=== PATIENT | male | born 2000 | race Two or more races ===

== ENCOUNTER 2020-01-10 09:47 | Inpatient (IN) | payer MEDICAID ==
[~2020-01-10] VITALS: Ht 167.6 cm; Wt 62.6 kg
--- NOTE | 2020-01-10 09:59 | NUR ---
PER [employer], THEY WILL WRITE A 5150 HOLD.
--- NOTE | 2020-01-10 10:00 | NUR ---
[id number], FOUND ON THE [place] UNCONSCIOUS W/ BELT WRAPPED AROUND HIS NECK. DENIES SI/HI UPON ARRIVAL. PATIENT A/OX2-3, WITH DISORGANIZED THOUGHTS. BREATHING EVEN AND UNLABORED, NO SOB NOTED. NEEDS ATTENDED. SITTER AT BEDSIDE FOR SAFETY.
[2020-01-10] MEDS ORDERED: OLANZAPINE 10 MG VIAL IM ONE ×2 (10:19→10:30)
[2020-01-10 10:22] LABS: BASOPHILS % (AUTO) 0.4 % (0.0-2.0); EOSINOPHILS % (AUTO) 1.5 % (0.0-6.0); HEMATOCRIT 41 % (39-51); LYMPHOCYTES # (AUTO) 2.2 /CMM (0.8-4.8); LYMPHOCYTES % (AUTO) 31.9 % (20.0-44.0); MEAN CORPUSCULAR HGB CONC 34 g/dl (31.0-36.0); MEAN CORPUSCULAR VOLUME 89 fL (80-96); MONOCYTES # (AUTO) 0.6 /CMM (0.1-1.30); MONOCYTES % (AUTO) 9.2 % (2.0-12.0); NEUTROPHILS # (AUTO) 3.9 /CMM (1.8-8.9); PLATELET COUNT (AUTO) 273 /CMM (150-450); RED BLOOD CELL COUNT(AUTO) 4.62 MIL/uL (4.5-6.0); WHITE BLOOD COUNT (AUTO) 6.8 K/uL (4.3-11.0)
[2020-01-10 10:34] LABS: CALCIUM, SERUM 8.5 mg/dL (8.5-10.1); CARBON DIOXIDE 28 mmol/L (21-32); CHLORIDE 104 mmol/L (98-107); CREATININE 0.9 mg/dL (0.6-1.3); GLUCOSE 96 mg/dL (74-106); POTASSIUM 3.9 mmol/L (3.5-5.1); SODIUM SERUM 140 mmol/L (136-145); UREA NITROGEN, BLOOD 8 mg/dL (7-18)
[2020-01-10 10:40] LABS: ALANINE AMINOTRANSFERASE 31 U/L (12-78); ALCOHOL, BLOOD < 3 mg/dL (0-0); ALKALINE PHOSPHATASE 79 U/L (46-116); ASPARTATE AMINOTRANSFERASE 26 U/L (15-37); BILIRUBIN,DIRECT 0.1 mg/dL (0.0-0.2); BILIRUBIN,TOTAL 0.4 mg/dL (0.2-1.0)
[2020-01-10 10:43] LABS: ACETAMINOPHEN 0 ug/ml (10-30)
[2020-01-10] MEDS ORDERED: IV NS 0.9% 250 ML IV ONE (10:44)
[2020-01-10] MEDS ORDERED: IOHEXOL-350 100 ML VIAL IV ONE (10:44)
[2020-01-10] MEDS ORDERED: CT SWABBABLE VALVE TRANS SET 1 EA INFUS.SET MC ONE (10:44)
--- NOTE | 2020-01-10 10:48 | NUR ---
MED RECON NURSE NOTES: PT NOT ANSWERING ANY QUESTIONS ASKS AT THIS TIME, UNABLE TO OBTAIN HOME MEDICATIONS.
--- NOTE | 2020-01-10 10:50 | NUR ---
[employer] 5150 HOLD PLACED IN CHART.
--- NOTE | 2020-01-10 10:50 | NUR ---
COVID SWAB COLLECTED AND SENT TO LAB
[2020-01-10] MEDS ORDERED: HYDROCODONE/APAP 10/325MG TABLET PO PRN (14:00)
[2020-01-10] MEDS ORDERED: MAG HYDROX/AL HYDROX/SIMETH 30 ML UDC PO PRN (14:00)
[2020-01-10] MEDS ORDERED: Z GUARD REMEDY 2 OZ OINT TP PRN (14:00)
[2020-01-10] MEDS ORDERED: LORAZEPAM INJ 2 MG/ML VIAL IV PRN (14:00)
[2020-01-10] MEDS ORDERED: TEMAZEPAM 15 MG CAPSULE PO PRN (14:00)
[2020-01-10] MEDS ORDERED: IV NS 0.9% 1,000 ML IV PRN (14:00)
[2020-01-10] MEDS ORDERED: HYDROCODONE/APAP 5/325MG TABLET PO PRN (14:00)
[2020-01-10] MEDS ORDERED: MAGNESIUM HYDROXIDE 30 ML UDC PO PRN (14:00)
[2020-01-10] MEDS ORDERED: ONDANSETRON HCL/PF 4 MG/2 ML VIAL IVP PRN (14:00)
[2020-01-10] MEDS ORDERED: ACETAMINOPHEN 325 MG TABLET PO PRN (14:00)
--- NOTE | 2020-01-10 14:28 | NUR ---
Pt will go to [facility]
--- NOTE | 2020-01-10 15:28 | NUR ---
REPORT GIVEN TO JULIAN URIAS FOR MALIKA
--- NOTE | 2020-01-10 15:57 | NUR ---
PT TRASNPORTED TO UNIT ON [facility] WITH EMT AND RN AT BEDSIDE W/ ACLS PROTOCOL. NAD NOTED DURING TRANSPORT. PT AMBULATED FROM GURNEY TO BED.
[2020-01-10 16:00] VITALS: BP 128/65
--- NOTE | 2020-01-10 16:00 | NUR ---
RETAIL DELIVERY DRIVER RECEIVING NOTES PATIENT ARRIVED BY COLTEN FROM ER. PATIENT ASLEEP. RECEIVED REPORT. SITTER AVAILABLE AT BEDSIDE. WILL FOLLOW UP AND CONTINUE PATIENT MONITORING.
--- NOTE | 2020-01-10 16:49 | NUR ---
PATTERN HANGER NOTES PATIENT ASLEEP AND REFUSING SKIN ASSESSMENT WHEN TRYING TO WAKE HIM UP. PATIENT IS DRESSED IN HIS CLOTHES AND DID NOT CHANGE INTO A GOWN.
--- NOTE | 2020-01-10 19:00 | NUR ---
EQUIPMENT SCHEDULER CLOSING NOTES PATIENT IN BED, ASLEEP. PATIENT ON ROOM AIR; BREATHING IS EVEN AND UNLABORED; NO SOB PRESENT. SO S/S OF PAIN SUCH MOANING, FACIAL GRIMACING OR GUARDING. RAC G #18 IV ACCESS PRESENT AND INTACT. SITTER AT BEDSIDE. SAFETY PRECAUTIONS IN PLACE; BED IN LOW POSITION AND LOCKED, RAILS UP X2, CALL LIGHT WITHIN REACH. WILL ENDORSE TO DURAL MECHANIC NURSE.
--- NOTE | 2020-01-10 19:35 | NUR ---
COMMODITY MANAGER OPENING NOTES PATIENT RECEIVED RESTING IN BED COMFORTABLY; A/OX2-3, PER AM SHIFT, PATIENT HAS BEEN SLEEPING MOST OF SHIFT D/T ZYPREXA IM; PATIENT IS EASILY AROUSABLE; SITTER AT BEDSIDE; PATIENT TOLERATING ROOM AIR WELL; NO SOB NOTED; TELE MONITOR READS SINUS RHYTHM; SITTER AT BEDSIDE; RAC#18 INTACT AND PATENT; PER AM SHIFT, PATIENT REFUSING SKIN ASSESSMENTS AND IVF WELL; WILL CONT TO MONITOR; ISOLATION PRECAUTIONS MAINTAINED; SAFETY PRECAUTIONS IMPLEMENTED; BED LOCKED IN LOW POSITION; SIDE RAILSX2; CALL LIGHT WITHIN EASY REACH; WILL CONT TO MONITOR
[2020-01-10 20:00] VITALS: BP 112/67
--- NOTE | 2020-01-11 | NUR ---
MS RN CLOSING NOTES PATIENT COVID RESULT NEGATIVE; NURSING JEWELRY FINISHER MADE AWARE; PER JEWELRY FINISHER, TRANSFER TO [facility], ENDORSED MALIKA TO JULIAN FLAHERTY; PATIENT TRANSFERRED TO UNIT WITH ALL BELONGINGS; & PINION SORTER SITTER;
--- NOTE | 2020-01-11 | NUR ---
MS RN NOTE RECEIVED PT AWAKE A/O X2 WITH CONFUSION. BREATHING EVEN AND UNLABORED ON RA. NO S/S OF PAIN OR DISCOMFORT. IV LINE ON RIGHT AC 18GAUGE. PATENT AND INTACT. PT WITH SITTER AT ALL TIMES. PT KEPT CLEAN AND DRY. ALL NEEDS RENDERED. SXR UP. CALL LIGHT WITHIN REACH. WILL CONTINUE TO MONITOR.
[2020-01-11 04:00] VITALS: BP 104/58
[2020-01-11 04:43] LABS: APPEARANCE,URINE CLEAR (CLEAR); BILIRUBIN,URINE NEGATIVE (NEGATIVE); BLOOD, URINE NEGATIVE Ery/uL (NEGATIVE); COLOR,URINE YELLOW (YELLOW); KETONES,URINE NEGATIVE (NEGATIVE); LEUKOCYTE ESTERASE ,URINE NEGATIVE (NEGATIVE); NITRITE, URINE NEGATIVE (NEGATIVE); PROTEIN,URINE NEGATIVE (NEGATIVE); UGLUCOSE NEGATIVE (NEGATIVE); UROBILINOGEN,URINE 0.2 EU/dL (0.2)
--- NOTE | 2020-01-11 06:39 | NUR ---
MS RN CLOSING NOTE PT IN BED. ASLEEP BUT EASILY AROUSABLE. BREATHING EVEN AND UNLABORED ON RA. DENIES PAIN OR DISCOMFORT. IV LINE ON RIGHT AC 18GAUGE. PATENT AND INTACT. PT WITH SITTER AT ALL TIMES. ALL NEEDS RENDERED. SXR UP. CALL LIGHT WITHIN REACH. WILL CONTINUE TO MONITOR.
[2020-01-11 07:01] LABS: BASOPHILS % (AUTO) 0.4 % (0.0-2.0); EOSINOPHILS % (AUTO) 1.5 % (0.0-6.0); HEMATOCRIT 44 % (39-51); HEMOGLOBIN 14.8 g/dL (13.5-17.5); LYMPHOCYTES # (AUTO) 1.7 /CMM (0.8-4.8); LYMPHOCYTES % (AUTO) 25.1 % (20.0-44.0); MEAN CORPUSCULAR HGB CONC 34 g/dl (31.0-36.0); MEAN CORPUSCULAR VOLUME 89 fL (80-96); MONOCYTES # (AUTO) 0.6 /CMM (0.1-1.30); MONOCYTES % (AUTO) 8.7 % (2.0-12.0); NEUTROPHILS # (AUTO) 4.3 /CMM (1.8-8.9); NEUTROPHILS % (AUTO) 64.3 % (43.0-81.0); PLATELET COUNT (AUTO) 266 /CMM (150-450); RED BLOOD CELL COUNT(AUTO) 4.93 MIL/uL (4.5-6.0); WHITE BLOOD COUNT (AUTO) 6.7 K/uL (4.3-11.0)
[2020-01-11 07:09] VITALS: BP 104/58
--- NOTE | 2020-01-11 07:30 | NUR ---
NURSES NOTES Patient received in stable condition. Patient sleeping. Patient refused offer for assistance in cleaning up and refused to change into gown as well. Patient's body and clothing visibly soiled. Patient did not verbally respond to any questions/offers for assistance.
[2020-01-11 07:42] LABS: CALCIUM, SERUM 8.5 mg/dL (8.5-10.1); CREATININE 0.7 mg/dL (0.6-1.3); MAGNESIUM 2.1 mg/dL (1.8-2.4); PHOSPHORUS 4.1 mg/dL (2.5-4.9); POTASSIUM 4.1 mmol/L (3.5-5.1)
[2020-01-11] MEDS: PANTOPRAZOLE 40 MG TABLET.DR PO SCH (09:42)
--- NOTE | 2020-01-11 11:00 | NUR ---
NURSES NOTES Patient lying in bed. Offered clean gown, asked patient if he would like to clean himself up. Patient shook head no. Only non verbal response. Patient denied any other needs at this time. Bed locked in low position w/ 2 side rails up for safety. Sitter at bedside.
--- NOTE | 2020-01-11 11:48 | NUR ---
After conversing with Dr. Wesley, Editorial Assistant to find a more suitable psychiatric facility as patient remains on a 5150 hold. Editorial Assistant provided intake [phone] copy clinicals, copy of 5150 hold, and facesheet to be faxed to [facility] Central Intake. SW to follow up with Intake regarding psychiatric placement.
[2020-01-11 12:19] VITALS: BP 107/62
--- NOTE | 2020-01-11 15:30 | NUR ---
NURSES NOTES Received message from Dimitry Maldonado team social research assistant JOHAN. Request follow up for patient entry into [facility]. Requested call back at . Advised charge nurse, she contacted social research assistant. Patient is now in bed. Asked once again if he'd like to change/clean up. Patient verbally responded no to both.
--- NOTE | 2020-01-11 16:21 | NUR ---
Patrol Officer was informed by Kiera Villalobos RN that JOHAN called regarding this patient. JULIAN Ladd provided this home health care social worker regarding information. Joel Moraes called regarding [facility]. Joel informed this SW the purpose of the [facility] and informed this SW that there is no information regarding this patient in their system. JAYSON informed Joel that this SW would provide all necessary information regarding this patient. JAYSON also informed Joel that patient remains on a 5150 hold and JAYSON is attempting to find placement for this patient. Per Joel, JAYSON to follow-up with Joel tomorrow morning to provide additional information regarding transfer. JAYSON informed Joel that Veronica TYLER, will follow-up with him regarding this patient. Plan: JAYSON Garcia to follow-up with Joel to provide more information.
--- NOTE | 2020-01-11 19:30 | NUR ---
RN NOTE PATIENT IS NON VERBAL AND IV SITE IS ON RIGHT AC INTACT PATENT.
--- NOTE | 2020-01-11 19:30 | NUR ---
RN OPENING NOTE RECEIVED PATIENT IN BED RESTING ALERT ORIENTED X2-3 ON MED SURG MONITORING ON ROOM AIR 98% NO SOB NOT ACUTE DISTRESS NOTED CONTINENT TO BOWEL AND BLADDER ON 5150 HOLD AND HAS SITTER,IMPLEMENT SAFETY MEASURE BED IN LOW POSITON AND LOCKED,BED ALARM IS ON CONTINUE TO MONITOR.
--- NOTE | 2020-01-11 19:45 | NUR ---
RN NOTE PATIENT HAS ORDER FOR IV HYDRATION BUT PATIENT REFUSED
[2020-01-11 20:00] VITALS: BP 105/74
[2020-01-12 04:29] VITALS: BP 108/75
[2020-01-12 06:24] LABS: BASOPHILS % (AUTO) 0.2 % (0.0-2.0); EOSINOPHILS % (AUTO) 1.2 % (0.0-6.0); HEMATOCRIT 43 % (39-51); HEMOGLOBIN 14.8 g/dL (13.5-17.5); LYMPHOCYTES # (AUTO) 1.8 /CMM (0.8-4.8); LYMPHOCYTES % (AUTO) 26.8 % (20.0-44.0); MEAN CORPUSCULAR HGB CONC 34 g/dl (31.0-36.0); MEAN CORPUSCULAR VOLUME 89 fL (80-96); MONOCYTES # (AUTO) 0.4 /CMM (0.1-1.30); MONOCYTES % (AUTO) 5.8 % (2.0-12.0); NEUTROPHILS # (AUTO) 4.5 /CMM (1.8-8.9); PLATELET COUNT (AUTO) 265 /CMM (150-450); RED BLOOD CELL COUNT(AUTO) 4.88 MIL/uL (4.5-6.0); WHITE BLOOD COUNT (AUTO) 6.8 K/uL (4.3-11.0)
[2020-01-12 06:37] LABS: CALCIUM, SERUM 8.8 mg/dL (8.5-10.1); CREATININE 0.6 mg/dL (0.6-1.3); MAGNESIUM 2.1 mg/dL (1.8-2.4); PHOSPHORUS 3.9 mg/dL (2.5-4.9); POTASSIUM 3.9 mmol/L (3.5-5.1)
--- NOTE | 2020-01-12 07:19 | NUR ---
RN CLOSING NOTE PATIENT REMAINS ON ALERT ORIENTED 2-3 NON VERBAL NO SOB NOT ACUTE DISTRESS NOTED,PATIENT HAS SITTER REFUSED SKIN ASSESSMENT AND IV HYDRATION,CONTINENT TO BOWEL AND BLADDER, ENDORSE NEXT COMING SHIFT FOR CONTINUATION OF CARE
[2020-01-12] MEDS: PANTOPRAZOLE 40 MG TABLET.DR PO SCH (07:30)
--- NOTE | 2020-01-12 08:50 | NUR ---
Patient is verbal , oriented x2 , on room air . Refusing IV fluids , meds, VS . Education provided and patient still refusing. Second food tray provided per patient request . Sitter at bedside for safety . Will continue to monitor
--- NOTE | 2020-01-12 09:56 | NUR ---
This SW called Joel Dimitry [phone], [facility] SMART TEAM at [facility]. Patient's case discussed. SW informed Joel that the fire arms report was attempted this morning, however the system was not working. director learning services to attempt the report again later, and Joel expressed understanding. DC plan discussed, and this SW stated that DC plan was not confirmed yet, however dialysis social worker would notify Joel once DC plan was confirmed. Joel expressed understanding and agreement. This SW then met with JAYSON Martin and JAYSON Ornelas to discuss this case. JAYSON Martin expressed agreement to follow up with Joel once DC plans were confirmed. JAYSON Ornelas expressed agreement to follow up with completing the fire arms report.
--- NOTE | 2020-01-12 10:14 | NUR ---
JAYSON spoke with Denice in Intake, , regarding status update on patient's DC plans to a psychiatric facility. Denice stated that the patient's records are being reviewed by [facility], inpatient psychiatric unit, and that Denice would let social welfare research worker know the outcome of the referral as soon as she hears back from [place].
--- NOTE | 2020-01-12 11:56 | NUR ---
Firearms Report: Motor Vehicle License Clerk completed and submitted a [employer] firearms report for 5150 Hold. A copy of report has been placed in patient chart.
--- NOTE | 2020-01-12 13:51 | NUR ---
JAYSON was notified by Denice at Intake [phone] that the pt. was accepted to [facility] [[address] [place] [address]; ]. Per Denice the pt.'s nurse to fax MD Note to [facility] and coordinate transport. This SW called Joel Moraes [phone], [facility] SMART TEAM at [facility] and notified him of the pt.'s D/C plan and provided him with the [place] Alexandra GASTELUM's phone number: [phone]. Joel expressed understanding and was agreeable to plan. JAYSON informed Joel that the firearms report was made by other SW, Ceci. Joel thanked JAYSON. SW will be available as needed.
--- NOTE | 2020-01-12 14:23 | NUR ---
Called to [facility] [phone] Alexandra to give report. Per Alexandra the bed is not available yet. Blanca therapeutic case manager aware .
--- NOTE | 2020-01-12 14:38 | NUR ---
followup with [facility] pending placement.
--- NOTE | 2020-01-12 15:20 | NUR ---
Patient attempted to escape unit and the Hospital. Security was called and patient was brought back with help of 4 nurses and security. was called pt on 5150 hold due to suicide attempt. Per dr. Wesley patient cannot leave the hospital voluntary. Per dr. Wesley one time order was placed ; Olanzapine 10mg/ Lorazepam 1 mg IM per
--- NOTE | 2020-01-12 15:53 | NUR ---
patient run off floor wants to leave hospital,security escorted patient back to floor rm 103.dr. kim made aware obtained order to give ativan/zyprexa coz patient on hold .social service foster care case manager made aware patient need to go to to psyche facility,per cm still looking for a place, sitter at bedside.nursing sup made aware.
--- NOTE | 2020-01-12 15:58 | NUR ---
patient calm now.sitter at bedside placed on single room by station.
--- NOTE | 2020-01-12 15:58 | NUR ---
zyprexa/ativan im given by keagan.
[2020-01-12] MEDS ORDERED: OLANZAPINE 10 MG VIAL IM ONE (16:00)
[2020-01-12] MEDS ORDERED: LORAZEPAM INJ 2 MG/ML VIAL IV ONE (16:00)
--- NOTE | 2020-01-12 16:03 | NUR ---
Zyprexa 10mg/ Ativan 1 mg IM administrated. Patient moved to room 106 and sitter at bedside.
--- NOTE | 2020-01-12 16:36 | NUR ---
Dr. Orellana made aware patient pending discharge r/t placement issue.
--- NOTE | 2020-01-12 18:47 | NUR ---
Patient calm now , sitter at bedside. No IV line and dr Orellana aware. Will endorse to next shift nurse for MALIKA
--- NOTE | 2020-01-12 20:00 | NUR ---
CAYLA/RN RECEIVED PATIENT IN BED APPEAR SLEEPING, CALM AND COMFORTABLE, NO SIGNS OF DISTRESS NOTED, SITTER AT BEDSIDE, PER SITTER, PATIENT REFUSED VITAL SIGNS. RECEIVED A CALL FROM MADELIN FROM CRISIS TEAM, WANTED TO SPEAK TO THE PATIENT BUT UNABLE TO SPEAK THE PATIENT WAS SLEEPING. PER MADELIN, SHE WILL CALL BACK IN A.M.
--- NOTE | 2020-01-13 01:53 | NUR ---
CAYLA/RN PATIENT IS SLEEPING, CALM AND COMFORTABLE, NO SIGNS OF DISTRESS NOTED, CALL LIGHT IN REACH. SITTER AT BEDSIDE. WILL CONTINUE TO MONITOR
--- NOTE | 2020-01-13 06:44 | NUR ---
CAYLA/JULIAN PATIENT IS STILL SLEEPING, APPEAR COMFORTABLE, NO DISTRESS NOTED, CALL LIGHT IN REACH, SITTER AT BEDSIDE. ALL NEEDS ATTENDED AT THIS TIME, WILL CONTINUE TO MONITOR. Addendum: 01/13/20 at 0653 by TREVIN RAPP RN CAYLA/JULIAN PATIENT REFUSED VITAL SIGNS.
[2020-01-13] MEDS: PANTOPRAZOLE 40 MG TABLET.DR PO SCH ×2 (07:30→08:31)
--- NOTE | 2020-01-13 08:00 | NUR ---
MS RN OPENING NOTES Received Patient asleep and resting in bed. VS stable with no acute distress. Breathing even and unlabored on room air with no respiratory distress. Denies pain. No signs and symptoms of pain. No IV access per MD. On 5150 hold, sitter at bedside. Safety precautions in place. Bed locked and set to lowest position with side rails x 2 up. All needs rendered at this time. Will continue to monitor.
--- NOTE | 2020-01-13 12:00 | NUR ---
MS RN NOTES Patient wants to go AMA. 5150 hold . Notified Maryjane GUILLORY. Per MD, Patient to wait in room until MD arrives. Patient resting in room in stable condition. Will continue to monitor.
--- NOTE | 2020-01-13 12:25 | NUR ---
CAYLA RN AMA DISCHARGE NOTES Patient AMA at this time to home. VS stable with no acute distress. Breathing even and unlabored on room air with no respiratory distress. Denies pain. No signs and symptoms of pain. Skin intact.e Discharge orders reviewed and explained to Patient. Patient verbalized understanding. All belongings with Patient. Escorted Patient to the Lobby for safety. Patient ambulatory and motivated for self care.
--- NOTE | 2020-01-13 13:24 | NUR ---
10:30am This health and social care teacher attempted to meet with the patient today. Patient remains on a 5150 hold and is currently in CAYLA. Patient has a 1:1 sitter. Patient is a 19-year-old male. Patient was asleep with sheet pulled over his head, easily arousable by name. Upon entering the room, SW introduced herself, however patient was not responsive. Patient kept sheet over his head. SW could hear patient mumbling and SW asked the patient if he could speak louder. Patient stated that he was hungry, and SW was informed by patients sitter that lunch would be served soon. SW attempted to discuss patients reason for hospitalization and patient stated, You need to call my mom and speak to her. SW asked patient for verbal consent to speak to patients mother and asked for the mothers contact information since it was not listed on the face sheet. Patient responded Why would I give you my moms information? Thats your job. SW attempted to inform the patient that patients mothers information was not in his records. Patient then stated You need to go to the resource. My mom is your resource. You need to get out. I do not want to speak to you if you cannot do your job. Patient continued to state You need to get out. you need to get out. SW ended the interview and exited the patients room. SW received a call from CAYLA daniel Gomes, louis Gomes patient provided mothers name Magaly Eaton but failed to provide contact information. This health and social care teacher will coordinate placement on an inpatient psychiatric unit with [facility]. stoneworker will also follow up to see next steps outlined by Dr Wesley who confirmed he will see patient today. Plan: JAYSON to follow up with [facility] and Dr. Wesley.
--- NOTE | 2020-01-13 16:56 | NUR ---
This SW called Joel Moraes [phone], [facility] SMART TEAM at [facility]. Joel was unavailable and this SW left a voicemail regarding this patient. SW to follow-up with Joel regarding this patient again on 01/13.
--- NOTE | 2020-01-17 11:04 | NUR ---
JAYSON received a call from Joel Moraes [phone], [facility] SMART TEAM [facility] following-up on this patient. JAYSON informed Joel that the patient's 5150 hold , psychiatrist (Dr. Wesley) had no criteria for a 5250 hold, patient left AMA and [facility]. Joel in understanding and thanked this SW for update.
== END 2020-01-13 12:25 | disposition left against medical advice (07) | DRG 815 ==
LOC: ER 09:51 → TELE2 14:37 → MEDSG1 01-11
PROVIDERS: ADMIT Nurse Practitioner Acute Care; ATTEND Student in an Organized Health Care Education/Training Program
DX: T71.162A Asphyxiation due to hanging, intentional self-harm, initial encounter (principal); Y92.89 Other specified places as the place of occurrence of the external cause; Y99.9 Unspecified external cause status; F41.9 Anxiety disorder, unspecified; F29 Unspecified psychosis not due to a substance or known physiological condition; F15.10 Other stimulant abuse, uncomplicated; F12.10 Cannabis abuse, uncomplicated; Z59.0 Homelessness; R45.851 Suicidal ideations; R56.9 Unspecified convulsions; G92 Toxic encephalopathy
CPT/HCPCS: 36415; 70498-TC; 71045-TC; 80048-TC; 80076-TC; 81000-TC; 83735-TC; 84100-TC; 85025-TC; 87081-TC; G0378; G0480; J2060; J3490; J7050; Q9967; U0003

== ENCOUNTER 2020-01-14 08:36 | Emergency (ER) | payer MEDICAID ==
[~2020-01-14] VITALS: Ht 167.6 cm; Wt 65.3 kg
--- NOTE | 2020-01-14 08:50 | NUR ---
PT BIB SELF C/O BACK PAIN 10/24. NO OTHER COMPLAINTS FROM PT NOTED. VS CHECKED. AWAITING MD PICHARDO.
--- NOTE | 2020-01-14 09:15 | NUR ---
PT REQUESTING FOR FOOD, ORDERED SANDWICH FOR PT
[2020-01-14] MEDS ORDERED: IBUPROFEN 600 MG TABLET ONE (09:17)
[2020-01-14] MEDS ORDERED: IBUPROFEN 600 MG TABLET PO ONE (09:30)
--- NOTE | 2020-01-14 10:00 | NUR ---
FOOD GIVEN TO PT
--- NOTE | 2020-01-14 10:20 | NUR ---
ED RN Enoch informed this SW patient requesting to speak with social sciences instructor. Patient is well known to this SW. Patient is a 19 year-old male. Patient reports he has been homeless for 4 years now. Patient reports he has been in [place] for a year. Patient informed this SW that he has been staying at [address] [id number] and patient reports that staff has been uncooperative with him as he does not have an Identification Card or Social Security Card. SW provided homeless resource information placed in patient's chart as patient stated that he was tired and did not want to continue speaking to this SW. Age Appropriate Shelters: [place] [address] Transitional Age Youth (Ages 18-24) ; [address] [address] In [facility] [place] [address] ; [facility] - Transition Age Youth [place], [place] [id number] Substance Abuse resources provided included: [facility] Substance Abuse Self-Helpline ([facility]) ; CRI -HELP [address] [facility] [place] [address] ; [place] [id number] [facility] [address] ; [facility] [address] [facility] [address] ; [place] [address] [facility] [address] ; [facility] Treatment [facility] 4940 [facility] [address] ; [facility] 9[address] [facility] [id number] ; [facility]stance Abuse Helpline([facility] ; [facility] ; [facility]; [facility] [place]; Cri-Help [place]; I-[facility] [place]; [place] [facility]; [facility]; [facility]; [facility]; Alcoholics Anonymous -SFV; Ta-Cmsg-Tqedouj ; Marijuana Anonymous -SFV; Narcotics Anonymous www.na.org. Year-round shelters : [place] [address] [place] [address] ; [place] [facility] [place] [address] [place] [address]; [place] [facility] Wzwievg[address] [facility]. [facility] [address] Hygiene: [facility]: [address] [address] [place] ; [facility] [address] [facility] ; [facility] [address] [place] . Food Resources: [place] [facility] at [facility]- [address] [facility]; Meet Each Need wit Dignity ([facility]) [address] [facility]; [facility] 4325 [facility]; [facility] 5324 [facility]. Mental Health resources provided: [facility] [address] [place] [address] ; [facility] Health [place] [address] [place] [facility] [address], [place] [address] ; [place] [facility]in [facility] [address] [place] [address] ; [facility] [address] [place], [place] [id number]
--- NOTE | 2020-01-14 10:30 | NUR ---
Patient discharged to home in stable condition. Written and verbal after care instructions given. Patient verbalizes understanding of instruction.
[2020-01-14 10:31] VITALS: BP 101/78
== END 2020-01-14 10:32 | disposition home or self-care (01) ==
LOC: ER 08:40
DX: M54.5 Low back pain (principal); M54.6 Pain in thoracic spine; Z59.0 Homelessness

== ENCOUNTER 2020-03-24 01:16 | Emergency (ER) | payer MEDICAID ==
[~2020-03-24] VITALS: Ht 160 cm; Wt 49.9 kg
--- NOTE | 2020-03-24 01:42 | NUR ---
PT AAOX4. BIBRA FROM THE [place]. PER RA PT IS BROUGHT IN FOR POSSIBLE HEROIN USE. THE PT WAS FOUND "PASSED OUT" AND GIVEN NARCAN. PT IS AWAKE, IN BED, PLACED ON MONITOR. WILL CONTINUE TO MONITOR. AWAITING ORDERS.
[2020-03-24 01:45] LABS: BASOPHILS # (AUTO) 0.1 /CMM (0.0-0.2); BASOPHILS % (AUTO) 0.3 % (0.0-2.0); EOSINOPHILS % (AUTO) 0.2 % (0.0-6.0); HEMATOCRIT 41 % (39-51); HEMOGLOBIN 13.3 g/dL (13.5-17.5); LYMPHOCYTES # (AUTO) 0.8 /CMM (0.8-4.8); LYMPHOCYTES % (AUTO) 3.7 % (20.0-44.0); MEAN CORPUSCULAR HGB CONC 33 g/dl (31.0-36.0); MEAN CORPUSCULAR VOLUME 90 fL (80-96); MONOCYTES # (AUTO) 0.8 /CMM (0.1-1.30); MONOCYTES % (AUTO) 3.3 % (2.0-12.0); NEUTROPHILS # (AUTO) 20.8 /CMM (1.8-8.9); NEUTROPHILS % (AUTO) 92.5 % (43.0-81.0); PLATELET COUNT (AUTO) 336 /CMM (150-450); RED BLOOD CELL COUNT(AUTO) 4.52 MIL/uL (4.5-6.0); WHITE BLOOD COUNT (AUTO) 22.5 K/uL (4.3-11.0)
[2020-03-24] MEDS: IV NS 0.9% 1,000 ML BAG IV ONE (01:45)
[2020-03-24 02:02] LABS: ALANINE AMINOTRANSFERASE 95 U/L (12-78); ALBUMIN 3.8 g/dL (3.4-5.0); ALKALINE PHOSPHATASE 102 U/L (46-116); ASPARTATE AMINOTRANSFERASE 105 U/L (15-37); BILIRUBIN,DIRECT 0.1 mg/dL (0.0-0.2); BILIRUBIN,TOTAL 0.3 mg/dL (0.2-1.0); CARBON DIOXIDE 30 mmol/L (21-32); CHLORIDE 105 mmol/L (98-107); CREATININE 1.2 mg/dL (0.6-1.3); GLUCOSE 151 mg/dL (74-106); POTASSIUM 4.7 mmol/L (3.5-5.1); SODIUM SERUM 143 mmol/L (136-145); TOTAL PROTEIN, SERUM 7.5 g/dL (6.4-8.2); UREA NITROGEN, BLOOD 15 mg/dL (7-18)
[2020-03-24 02:14] LABS: ACETAMINOPHEN 0 ug/ml (10-30); ALCOHOL, BLOOD 0 mg/dL (0-0)
--- NOTE | 2020-03-24 04:39 | NUR ---
URINE COLLECTED. SENT TO LAB
[2020-03-24 05:09] LABS: BILIRUBIN,URINE Negative (NEGATIVE); COLOR,URINE YELLOW (YELLOW); LEUKOCYTE ESTERASE ,URINE Negative (NEGATIVE); NITRITE, URINE Negative (NEGATIVE); PROTEIN,URINE Negative (NEGATIVE); UGLUCOSE 100 MG/DL mg/dL (NEGATIVE); UROBILINOGEN,URINE 0.2 EU/dL (0.2)
[2020-03-24] MEDS ORDERED: ONDANSETRON 4 MG TAB.RAPDIS ONE (05:33)
[2020-03-24 05:59] LABS: BACTERIA,URINE None seen /HPF (None Seen); HYALINE CASTS, URINE Few /LPF (None Seen); RBC,URINE 0-2 /HPF (0-2); SQUAMOUS EPITHELIAL CELL,UR Few /HPF (None Seen); WBC,URINE 0-2 /HPF (0-3)
[2020-03-24 06:00] LABS: MUCUS,URINE Few /LPF (None Seen)
--- NOTE | 2020-03-24 06:20 | NUR ---
IV removed. Catheter intact and site benign. Pressure and 4x4 applied to site. No bleeding noted.
[2020-03-24] MEDS: ONDANSETRON 4 MG TAB.RAPDIS SL ONE (06:29)
--- NOTE | 2020-03-24 06:29 | NUR ---
Patient discharged to previous place of living in stable condition. Written and verbal after care instructions given. Patient verbalizes understanding of instruction. ambulatory with a steady gait. pt provided with food and drink, pt dressed appropriately. pt refused to signed homeless usp at this time.
[2020-03-24 06:33] VITALS: BP 116/63
== END 2020-03-24 06:34 | disposition home or self-care (01) ==
LOC: ER 01:16
DX: T40.1X1A Poisoning by heroin, accidental (unintentional), initial encounter (principal); D72.829 Elevated white blood cell count, unspecified; Z59.0 Homelessness; Y92.89 Other specified places as the place of occurrence of the external cause
CPT/HCPCS: 36415; 71045; 80048; 80076; 80299; 80307; 80320; 81001; 85025; 93005; 96360; 99285; J7030; Q0162; G0480